=== PATIENT | female | born 1970 | race Two or more races ===

== ENCOUNTER 2020-08-11 09:42 | Outpatient (CLI) | payer MEDICAID | END 2020-08-11 23:59 | disposition home or self-care (01) | LOC: LAB 09:42 | PROVIDERS: ATTEND Specialist | DX: Z01.812 Encounter for preprocedural laboratory examination (principal); Z20.828 Contact with and (suspected) exposure to other viral communicable diseases | CPT/HCPCS: 87426; C9803 ==

== ENCOUNTER 2020-08-17 08:47 | Day surgery (SDC) | payer MEDICAID ==
[~2020-08-17] VITALS: Ht 152.4 cm; Wt 75.7 kg
[2020-08-17 09:25] VITALS: BP 124/73
--- NOTE | 2020-08-17 09:50 | NUR ---
PT. ADM. FOR SHOULDER SURG. TODAY.NO PAIN AT THIS TIME.VS TAKEN ASSESSMENT DONE AND TAKEN TO OR VIA BED.NO KNOWN ALLERGIES.
[2020-08-17] MEDS ORDERED: BUPIVACAINE 0.25% 75 MG/30 ML VIAL ONE (10:00)
[2020-08-17] MEDS ORDERED: ANESTHESIA TRAY IN PYXIS 1 EA TRAY MC ONE (10:00)
[2020-08-17] MEDS ORDERED: MIDAZOLAM HCL 2 MG/2ML VIAL ONE (10:35)
[2020-08-17] MEDS ORDERED: BUPIVACAINE 0.5 % PF 150 MG/30 ML VIAL ONE (10:35)
[2020-08-17] MEDS ORDERED: HYDROMORPHONE INJ 2 MG/ML DISP.SYRIN ONE (10:35)
[2020-08-17] MEDS ORDERED: EPINEPHRINE (1:1000) 1 MG/ML AMPUL ONE (10:44)
[2020-08-17] MEDS ORDERED: LIDOCAINE 1% INJ 50 ML MDV IJ ONE (11:31)
[2020-08-17] MEDS ORDERED: methylPREDNISolone ACETATE 80 MG/ML VIAL ONE (11:31)
[2020-08-17] MEDS ORDERED: HYDROMORPHONE 1 MG/1 ML DISP.SYRIN ONE (12:12)
--- NOTE | 2020-08-17 13:00 | NUR ---
RETURNED TO RM. VS STABLE.NO COMPLAINTS SLING ON,DENIES N/TINGLING TO RT. ARM.DRESSING DRY AND INTACT.INSTRUCTED NOT TO GET OOB WITHOUT CALLING FOR HELP.
--- NOTE | 2020-08-17 13:15 | NUR ---
RETURNED TO RM. WITH IV LT. ARM,PLACED IN OR.
--- NOTE | 2020-08-17 14:30 | NUR ---
SEE VS GRAPHIC ON PROGRESS NOTE IN CHART.
--- NOTE | 2020-08-17 15:30 | NUR ---
CHANELLE STEPHENSON DC'Pablo.BANDAGE TO SITE.
--- NOTE | 2020-08-17 15:40 | NUR ---
ATE SMALL AMT. REGULAR CONSISTENCY FOOD AND JUST UP TO BATHRM. 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
== END 2020-08-17 18:00 | disposition home or self-care (01) ==
LOC: DS 08:47 → UNDOADMIN 08:49 → MED 08:49 → UNDODISIN 15:40 → DS 18:00
PROVIDERS: ATTEND Specialist
DX: M75.41 Impingement syndrome of right shoulder (principal); J45.909 Unspecified asthma, uncomplicated; D64.9 Anemia, unspecified; G89.29 Other chronic pain
CPT/HCPCS: 29824; 29826; 84703; A4217; J0171; J0690; J1040; J1100; J1170 ×2; J1885; J2250; J2405; J2704; J3490 ×4; G0378